=== PATIENT | female | born 2000 | race African-American/Black ===

== ENCOUNTER 2022-02-19 18:17 | Emergency (ER) | payer MEDICARE ==
[~2022-02-19] VITALS: Ht 165.1 cm; Wt 104.3 kg
[2022-02-19] MEDS ORDERED: PENICILLIN G BENZATHINE LA 1.2 MU TBX IM STA (19:08)
== END 2022-02-19 19:30 | disposition home or self-care (01) ==
LOC: ER 18:43
DX: J02.0 Streptococcal pharyngitis (principal)
CPT/HCPCS: 83518; 99282; J0561